=== PATIENT | female | born 1990 | race Caucasian/White ===

== ENCOUNTER 2021-05-11 09:34 | Emergency (ER) | payer OTHER ==
[2021-05-11 09:50] VITALS: BP 130/84; PULSE 88; TEMP 98; BMI 24.0
== END 2021-05-11 10:13 | disposition home or self-care (01) ==
LOC: FER 09:34
DX: H92.01 Otalgia, right ear (principal)
CPT/HCPCS: 99283-25

== ENCOUNTER 2022-09-05 03:01 | Emergency (ER) | payer OTHER ==
[2022-09-05 03:10] VITALS: BP 115/74; PULSE 68; RESP 16; TEMP 97.7; BMI 31.7
[2022-09-05] MEDS ORDERED: KETOROLAC TROMETHAMINE 60 MG/2 ML VIAL ONE (03:17)
[2022-09-05] MEDS ORDERED: KETOROLAC TROMETHAMINE 60 MG/2 ML VIAL IM ONE (03:17)
== END 2022-09-05 03:31 | disposition home or self-care (01) ==
LOC: FER 03:01
PROC: 3E023GC Introduction of Other Therapeutic Substance into Muscle, Percutaneous Approach (ICD-10-PCS; principal; 2022-09-05)
DX: M54.31 Sciatica, right side (principal)
CPT/HCPCS: 81025; 99284-25